=== PATIENT | female | born 1945 | race Caucasian/White ===

== ENCOUNTER 2025-03-19 06:29 | Emergency (ER) | payer MEDICARE, BC ==
[2025-03-19 06:49] VITALS: TEMP 101.3
--- NOTE | 2025-03-19 07:28 | ERPHSYRPT ---
- History of Present Illness Time Seen by Provider: 03/19/25 07:15 Source: patient Exam Limitations: no limitations Patient Subjective Stated Complaint: pt reports approx 0130 she woke up and was short of breath, pt reports fever and chills with last dose of tylenol at 0330. pt reports sharp pain in her right breast that has lessened some this morning, pt reports a mostly dry cough that is more than her baseline. Triage Nursing Assessment: pt is aox3, pt is febrile, pt is short of breath, expiratory wheezes auscultated to the right posterior lung bright, pt lung sounds are diminished throughout, cap refill < 3 seconds, radial pulses strong, irregular, pt skin hot to touch, dry, intact. Physician History: This is a morbidly obese 80-year-old white female patient who arrives to the emergency department by private vehicle with a complaint of shortness of breath that was relatively sudden in onset waking her up at approximately 130 this morning. She has associated fever and back pain. Her heart rate is in the 120 to 130 bpm range. She has pain in the right chest/breast. She has a mild, nonproductive cough. Timing/Duration: today Severity of Dyspnea-Max: mild Severity of Dyspnea-Current: mild Possible Cause: occasional episodes Modifying Factors: Improves With: coughing Associated Symptoms: cough, fever Allergies/Adverse Reactions: amoxicillin Allergy (Verified 03/19/25 06:51) celecoxib [From Celebrex] Allergy (Verified 03/19/25 06:51) sulfamethoxazole [From Bactrim] Allergy (Verified 03/19/25 06:51) trimethoprim [From Bactrim] Allergy (Verified 03/19/25 06:51) Home Medications: ALPRAZolam 0.25 MG [xanAX 0.25 MG] 0.5 mg PO TIDPRN PRN 03/19/25 [History] Allopurinol 300 mg [Zyloprim 300 mg] 300 mg PO DAILY 03/19/25 [History] Amlodipine Besylate 5 mg PO DAILY 03/19/25 [History] Atorvastatin Calcium 20 mg PO DAILY 03/19/25 [History] Fluticasone Propionate [Flonase NASAL] 16 gm NS DAILY 03/19/25 [History] Fluticasone/Vilanterol [Breo Ellipta 100-25 Mcg Inhalr] 1 puff IH DAILY 03/19/25 [History] Furosemide 20 mg [Lasix 20 mg] 20 mg PO DAILY 03/19/25 [History] Lisinopril/Hydrochlorothiazide [Lisinopril-Hctz 20-12.5 mg Tab] 1 each PO DAILY 03/19/25 [History] Montelukast Sodium 10 mg [Singulair 10 MG] 10 mg PO DAILY 03/19/25 [History] Potassium Chloride Tab* [Klor Con] 20 meq PO BID 03/19/25 [History] Hx Tetanus, Diphtheria Vaccination/Date Given: Yes Hx Influenza Vaccination/Date Given: Yes Hx Pneumococcal Vaccination/Date Given: Yes Immunizations Up to Date: Yes Travel Risk - International Travel Have you traveled outside of the country in past 3 weeks: No - Emerging Infectious Disease Are you exhibiting symptoms associated with any current EIDs: No Symptoms: Cough: New Onset, Fever - Review of Systems Constitutional: Fever Eyes: No Symptoms Ears, Nose, & Throat: No Symptoms Respiratory: Cough, Dyspnea Cardiac: No Symptoms Abdominal/Gastrointestinal: No Symptoms Genitourinary Symptoms: No Symptoms Musculoskeletal: No Symptoms Skin: No Symptoms Neurological: No Symptoms Psychological: No Symptoms Endocrine: No Symptoms Hematologic/Lymphatic: No Symptoms Immunological/Allergic: No Symptoms All Other Systems: Reviewed and Negative - Past Medical History Neurological History: No Pertinent History Cardiac History: Hypertension Respiratory History: Asthma, COPD Musculoskeletal History: Osteoarthritis Other Medical History: PMH: GOUT, L FOOT FRACTURE (5TH METATARSAL), SHINGLES. PSH: BACK SX 02' DISECTOMY X 2, BLADDER PROLAPSE, COMPLETE HYSTERECTOMY, GALL BLADDER, ,TUBAL LIGATION, - Past Surgical History Past Surgical History: Yes Gastrointestinal: Cholecystectomy Musculoskeletal: Orthopedic Surgery Female Surgical History: Hysterectomy, Tubal Ligation, Other Other Surgical History: bladder surgery - Social History Smoking Status: Former smoker Exposure to second hand smoke: No Drug Use: none - Social Determinants of Health Will the patient participate in the screening: Yes Do you worry about a steady place to live?: No Do you have any problems with any of the following?: No known problems In the past 12 months,have you had to go without utilities?: No Transportation Issues: No Has anyone in your support network made you feel unsafe?: No Have you or anyone in your house had to go w/o enough food: No - Nursing Vital Signs Nursing Vital Signs: Initial Vital Signs Pulse Rate 116 H 03/19/25 06:31 Respiratory Rate 20 03/19/25 06:31 Blood Pressure 163/93 03/19/25 06:31 O2 Sat by Pulse Oximetry 96 03/19/25 06:31 Pain Scale Pain Intensity 7 - Physical Exam General Appearance: mild distress, alert, anxiety, obese Eye Exam: PERRL/EOMI, eyes nml inspection Ears, Nose, Throat Exam: hearing grossly normal, normal ENT inspection, normal pharynx Neck Exam: normal inspection, non-tender, supple, full range of motion Respiratory Exam: normal breath sounds, lungs clear, airway intact, No chest tenderness, No respiratory distress Cardiovascular/Chest Exam: tachycardia Abdominal/Gastrointestinal Exam: soft, normal bowel sounds, No tenderness Rectal Exam: not done Extremity Exam: non-tender, normal range of motion, normal inspection Neurologic Exam: alert, oriented x 3, cooperative, machine setter sheet metal II-XII nml as tested, sensation nml Skin Exam: normal color, warm, dry Lymphatic Exam: No adenopathy SpO2 Interpretation: normal SpO2: 95 O2 Delivery: Room Air - Course Nursing assessment & vital signs reviewed: Yes EKG Interpreted by Me: RATE (114), A-fib, NORMAL AXIS, NORMAL INTERVALS, Right Bundle Branch Block, Other (QTc is 440. No acute ischemic changes on today's twelve-lead EKG.) Ordered Tests: Active Orders 24 hr Category Date Time Status EKG-ER Only STAT Care 03/19/25 07:28 Active EKG-ER Only STAT Care 03/19/25 12:45 Active IV Insertion STAT Care 03/19/25 07:28 Active Pulse Oximetry (ED) STAT Care 03/19/25 07:28 Active ABDOMEN AND PELVIS W/0 CONTRAS [CT] Stat Exams 03/19/25 08:59 Completed CHEST WITHOUT CONTRAST [CT] Stat Exams 03/19/25 08:59 Completed BLOOD CULTURE Stat Lab 03/19/25 07:45 Received CBC W DIFF Stat Lab 03/19/25 08:02 Completed CMP Stat Lab 03/19/25 08:02 Completed CULTURE,URINE Stat Lab 03/19/25 11:22 Received D-DIMER QUANTITATIVE Stat Lab 03/19/25 08:02 Completed Lactic Acid Stat Lab 03/19/25 07:43 Completed Lactic Acid Stat Lab 03/19/25 09:47 Completed MAGNESIUM Stat Lab 03/19/25 08:02 Completed MONO SCREEN Stat Lab 03/19/25 08:02 Completed PROCALCITONIN Stat Lab 03/19/25 08:02 Completed TROPONIN Q4H Lab 03/19/25 08:02 Completed TROPONIN Q4H Lab 03/19/25 11:58 Completed TROPONIN Q4H Lab 03/19/25 15:30 Ordered UA W/RFX UR CULTURE Stat Lab 03/19/25 11:22 Completed Medication Summary Generic Name Dose Route Start Last Admin Trade Name Freq PRN Reason Stop Dose Admin Sodium Chloride 1,000 mls @ 100 mls/hr 03/19/25 07:30 03/19/25 12:18 Sodium Chloride 0.9% 1000 Ml IV 04/18/25 07:29 Infused .Q10H KRUPA Infusion Sodium Chloride 1,000 mls @ 125 mls/hr 03/19/25 10:45 03/19/25 11:26 Sodium Chloride 0.9% 1000 Ml IV 04/18/25 10:44 125 mls/hr .Q8H KRUPA Administration Discontinued Medications Generic Name Dose Route Start Last Admin Trade Name Freq PRN Reason Stop Dose Admin Enoxaparin Sodium 110 mg 03/19/25 08:58 03/19/25 09:59 Enoxaparin Sodium 120 Mg/0.8 Ml Syringe SQ 03/19/25 08:59 110 mg STAT STA Administration Hydromorphone HCl 0.5 mg 03/19/25 07:30 03/19/25 07:38 Hydromorphone 1 Mg/1ml Inj IV 03/19/25 07:31 0.5 mg STAT ONE Administration Levofloxacin/Dextrose 500 mg in 100 mls @ 100 mls/hr 03/19/25 10:40 03/19/25 12:24 Levofloxacin 500mg/100ml D5w IV 03/19/25 11:39 Infused STAT STA Infusion Levofloxacin/Dextrose Confirm 03/19/25 11:09 Levofloxacin 500mg/100ml D5w Administered 03/19/25 11:10 Dose 500 mg in 100 mls @ ud IV .STK-MED ONE Magnesium Sulfate/Dextrose 100 mls @ 200 mls/hr 03/19/25 12:11 03/19/25 12:52 Magnesium 1 Gm / 100 Ml D5w IV 03/19/25 12:40 Infused STAT ONE Infusion Magnesium Sulfate/Dextrose Confirm 03/19/25 12:19 Magnesium 1 Gm / 100 Ml D5w Administered 03/19/25 12:20 Dose 100 mls @ ud IV .STK-MED ONE Ondansetron HCl 4 mg 03/19/25 07:28 03/19/25 07:34 Ondansetron Hcl 4 Mg/2 Ml Vial IV 03/19/25 07:29 4 mg STAT STA Administration Lab/Rad Data: Laboratory Result Diagrams 03/19/25 08:02 03/19/25 08:02 Laboratory Results 03/19/25 03/19/25 03/19/25 Range/Units 11:58 11:22 09:47 WBC (3.98-10.04) x10^3/uL RBC (3.93-5.22) x10^6/uL Hgb (11.2-15.7) g/dL Hct (34.1-44.9) % MCV (79.4-94.8) fL MCH (25.6-32.2) pg MCHC (32.2-35.5) g/dL RDW (11.7-14.4) % Plt Count (182-369) x10^3/uL MPV (9.4-12.3) fL Gran % (34.0-71.1) % Immature Gran % (Auto) (0.001-0.429) % Nucleat RBC Rel Count (0.00-0.2) % Eos # (Auto) (0.04-0.36) x10^3/uL Immature Gran # (Auto) (0.001-0.031) x10^3u/L Absolute Lymphs (auto) (1.18-3.74) x10^3/uL Absolute Monos (auto) (0.24-0.86) x10^3/uL Absolute Nucleated RBC (0.00-0.012) x10^3u/L Lymphocytes % (19.3-51.7) % Monocytes % (4.7-12.5) % Eosinophils % (0.7-5.8) % Basophils % (0.1-1.2) % Absolute Granulocytes (1.56-6.13) x10^3/uL Basophils # (0.01-0.08) x10^3/uL D-Dimer (0.0-0.50) mg/L Sodium (135-145) mmol/L Potassium (3.5-5.1) mmol/L Chloride (98-107) mmol/L Carbon Dioxide (22-30) mmol/L Anion Gap (5-15) MEQ/L BUN (7-17) mg/dL Creatinine (0.52-1.04) mg/dL Estimated GFR ML/MIN Glucose (74-106) mg/dL Lactic Acid 2.9 H (0.4-2.0) Calcium (8.4-10.2) mg/dL Magnesium (1.6-2.3) mg/dL Total Bilirubin (0.2-1.3) mg/dL AST (14-36) U/L ALT (0-35) U/L Alkaline Phosphatase (38-126) U/L Troponin I 0.049 H* (0.000-0.033) ng/mL Serum Total Protein (6.3-8.2) g/dL Albumin (3.5-5.0) g/dL Procalcitonin (0.030-0.080) ng/mL Urine Color Yellow (Yellow) Urine Appearance Cloudy A (Clear) Urine pH 5.0 (4.6-8.0) Ur Specific [place] 1.020 (1.005-1.030) Urine Protein Trace A (Negative) Urine Glucose (UA) Negative (Negative) mg/dL Urine Ketones Trace A (Negative) Urine Blood Negative (Negative) Urine Nitrite Positive A (Negative) Urine Bilirubin Negative (Negative) Urine Urobilinogen 1.0 A (0.2) mg/dL Ur Leukocyte Esterase Moderate A (Negative) U Hyaline Cast (Auto) 0-2 (0-2) /LPF Urine Microscopic RBC NONE SEEN (0-5) /HPF Urine Microscopic WBC 21-50 A (0-5) /HPF Ur Epithelial Cells Moderate A (None Seen) /HPF Urine Bacteria Many A (None Seen) /HPF Urine Culture Reflexed YES (NO) Monoscreen (NEGATIVE) Influenza Type A Ag (NEGATIVE) Influenza Type B Ag (NEGATIVE) RSV (PCR) (NEGATIVE) SARS-CoV-2 (PCR) (NEGATIVE) Group A Strep Antibody (NEGATIVE) 03/19/25 03/19/25 03/19/25 Range/Units 08:11 08:02 08:02 WBC (3.98-10.04) x10^3/uL RBC (3.93-5.22) x10^6/uL Hgb (11.2-15.7) g/dL Hct (34.1-44.9) % MCV (79.4-94.8) fL MCH (25.6-32.2) pg MCHC (32.2-35.5) g/dL RDW (11.7-14.4) % Plt Count (182-369) x10^3/uL MPV (9.4-12.3) fL Gran % (34.0-71.1) % Immature Gran % (Auto) (0.001-0.429) % Nucleat RBC Rel Count (0.00-0.2) % Eos # (Auto) (0.04-0.36) x10^3/uL Immature Gran # (Auto) (0.001-0.031) x10^3u/L Absolute Lymphs (auto) (1.18-3.74) x10^3/uL Absolute Monos (auto) (0.24-0.86) x10^3/uL Absolute Nucleated RBC (0.00-0.012) x10^3u/L Lymphocytes % (19.3-51.7) % Monocytes % (4.7-12.5) % Eosinophils % (0.7-5.8) % Basophils % (0.1-1.2) % Absolute Granulocytes (1.56-6.13) x10^3/uL Basophils # (0.01-0.08) x10^3/uL D-Dimer (0.0-0.50) mg/L Sodium (135-145) mmol/L Potassium (3.5-5.1) mmol/L Chloride (98-107) mmol/L Carbon Dioxide (22-30) mmol/L Anion Gap (5-15) MEQ/L BUN (7-17) mg/dL Creatinine (0.52-1.04) mg/dL Estimated GFR ML/MIN Glucose (74-106) mg/dL Lactic Acid (0.4-2.0) Calcium (8.4-10.2) mg/dL Magnesium (1.6-2.3) mg/dL Total Bilirubin (0.2-1.3) mg/dL AST (14-36) U/L ALT (0-35) U/L Alkaline Phosphatase (38-126) U/L Troponin I 0.018 (0.000-0.033) ng/mL Serum Total Protein (6.3-8.2) g/dL Albumin (3.5-5.0) g/dL Procalcitonin (0.030-0.080) ng/mL Urine Color (Yellow) Urine Appearance (Clear) Urine pH (4.6-8.0) Ur Specific [place] (1.005-1.030) Urine Protein (Negative) Urine Glucose (UA) (Negative) mg/dL Urine Ketones (Negative) Urine Blood (Negative) Urine Nitrite (Negative) Urine Bilirubin (Negative) Urine Urobilinogen (0.2) mg/dL Ur Leukocyte Esterase (Negative) U Hyaline Cast (Auto) (0-2) /LPF Urine Microscopic RBC (0-5) /HPF Urine Microscopic WBC (0-5) /HPF Ur Epithelial Cells (None Seen) /HPF Urine Bacteria (None Seen) /HPF Urine Culture Reflexed (NO) Monoscreen NEGATIVE (NEGATIVE) Influenza Type A Ag NEGATIVE (NEGATIVE) Influenza Type B Ag NEGATIVE (NEGATIVE) RSV (PCR) NEGATIVE (NEGATIVE) SARS-CoV-2 (PCR) NEGATIVE (NEGATIVE) Group A Strep Antibody (NEGATIVE) 03/19/25 03/19/25 03/19/25 Range/Units 08:02 08:02 08:02 WBC (3.98-10.04) x10^3/uL RBC (3.93-5.22) x10^6/uL Hgb (11.2-15.7) g/dL Hct (34.1-44.9) % MCV (79.4-94.8) fL MCH (25.6-32.2) pg MCHC (32.2-35.5) g/dL RDW (11.7-14.4) % Plt Count (182-369) x10^3/uL MPV (9.4-12.3) fL Gran % (34.0-71.1) % Immature Gran % (Auto) (0.001-0.429) % Nucleat RBC Rel Count (0.00-0.2) % Eos # (Auto) (0.04-0.36) x10^3/uL Immature Gran # (Auto) (0.001-0.031) x10^3u/L Absolute Lymphs (auto) (1.18-3.74) x10^3/uL Absolute Monos (auto) (0.24-0.86) x10^3/uL Absolute Nucleated RBC (0.00-0.012) x10^3u/L Lymphocytes % (19.3-51.7) % Monocytes % (4.7-12.5) % Eosinophils % (0.7-5.8) % Basophils % (0.1-1.2) % Absolute Granulocytes (1.56-6.13) x10^3/uL Basophils # (0.01-0.08) x10^3/uL D-Dimer 1.67 H* (0.0-0.50) mg/L Sodium 140 (135-145) mmol/L Potassium 4.1 (3.5-5.1) mmol/L Chloride 105 (98-107) mmol/L Carbon Dioxide 21 L (22-30) mmol/L Anion Gap 18.4 H (5-15) MEQ/L BUN 26 H (7-17) mg/dL Creatinine 1.71 H (0.52-1.04) mg/dL Estimated GFR 29.7 ML/MIN Glucose 97 (74-106) mg/dL Lactic Acid (0.4-2.0) Calcium 9.7 (8.4-10.2) mg/dL Magnesium 1.1 L (1.6-2.3) mg/dL Total Bilirubin 1.30 (0.2-1.3) mg/dL AST 25 (14-36) U/L ALT 17 (0-35) U/L Alkaline Phosphatase 120 (38-126) U/L Troponin I (0.000-0.033) ng/mL Serum Total Protein 6.6 (6.3-8.2) g/dL Albumin 4.1 (3.5-5.0) g/dL Procalcitonin 2.020 H* (0.030-0.080) ng/mL Urine Color (Yellow) Urine Appearance (Clear) Urine pH (4.6-8.0) Ur Specific [place] (1.005-1.030) Urine Protein (Negative) Urine Glucose (UA) (Negative) mg/dL Urine Ketones (Negative) Urine Blood (Negative) Urine Nitrite (Negative) Urine Bilirubin (Negative) Urine Urobilinogen (0.2) mg/dL Ur Leukocyte Esterase (Negative) U Hyaline Cast (Auto) (0-2) /LPF Urine Microscopic RBC (0-5) /HPF Urine Microscopic WBC (0-5) /HPF Ur Epithelial Cells (None Seen) /HPF Urine Bacteria (None Seen) /HPF Urine Culture Reflexed (NO) Monoscreen (NEGATIVE) Influenza Type A Ag (NEGATIVE) Influenza Type B Ag (NEGATIVE) RSV (PCR) (NEGATIVE) SARS-CoV-2 (PCR) (NEGATIVE) Group A Strep Antibody NOT DETECTED (NEGATIVE) 03/19/25 03/19/25 Range/Units 08:02 07:43 WBC 7.1 (3.98-10.04) x10^3/uL RBC 4.26 (3.93-5.22) x10^6/uL Hgb 13.0 (11.2-15.7) g/dL Hct 39.9 (34.1-44.9) % MCV 93.7 (79.4-94.8) fL MCH 30.5 (25.6-32.2) pg MCHC 32.6 (32.2-35.5) g/dL RDW 14.7 H (11.7-14.4) % Plt Count 173 L (182-369) x10^3/uL MPV 11.2 (9.4-12.3) fL Gran % 84.3 H (34.0-71.1) % Immature Gran % (Auto) 0.3 (0.001-0.429) % Nucleat RBC Rel Count 0.6 H (0.00-0.2) % Eos # (Auto) 0.01 L (0.04-0.36) x10^3/uL Immature Gran # (Auto) 0.02 (0.001-0.031) x10^3u/L Absolute Lymphs (auto) 0.85 L (1.18-3.74) x10^3/uL Absolute Monos (auto) 0.22 L (0.24-0.86) x10^3/uL Absolute Nucleated RBC 0.04 H (0.00-0.012) x10^3u/L Lymphocytes % 11.9 L (19.3-51.7) % Monocytes % 3.1 L (4.7-12.5) % Eosinophils % 0.1 L (0.7-5.8) % Basophils % 0.3 (0.1-1.2) % Absolute Granulocytes 6.00 (1.56-6.13) x10^3/uL Basophils # 0.02 (0.01-0.08) x10^3/uL D-Dimer (0.0-0.50) mg/L Sodium (135-145) mmol/L Potassium (3.5-5.1) mmol/L Chloride (98-107) mmol/L Carbon Dioxide (22-30) mmol/L Anion Gap (5-15) MEQ/L BUN (7-17) mg/dL Creatinine (0.52-1.04) mg/dL Estimated GFR ML/MIN Glucose (74-106) mg/dL Lactic Acid 2.7 H (0.4-2.0) Calcium (8.4-10.2) mg/dL Magnesium (1.6-2.3) mg/dL Total Bilirubin (0.2-1.3) mg/dL AST (14-36) U/L ALT (0-35) U/L Alkaline Phosphatase (38-126) U/L Troponin I (0.000-0.033) ng/mL Serum Total Protein (6.3-8.2) g/dL Albumin (3.5-5.0) g/dL Procalcitonin (0.030-0.080) ng/mL Urine Color (Yellow) Urine Appearance (Clear) Urine pH (4.6-8.0) Ur Specific [place] (1.005-1.030) Urine Protein (Negative) Urine Glucose (UA) (Negative) mg/dL Urine Ketones (Negative) Urine Blood (Negative) Urine Nitrite (Negative) Urine Bilirubin (Negative) Urine Urobilinogen (0.2) mg/dL Ur Leukocyte Esterase (Negative) U Hyaline Cast (Auto) (0-2) /LPF Urine Microscopic RBC (0-5) /HPF Urine Microscopic WBC (0-5) /HPF Ur Epithelial Cells (None Seen) /HPF Urine Bacteria (None Seen) /HPF Urine Culture Reflexed (NO) Monoscreen (NEGATIVE) Influenza Type A Ag (NEGATIVE) Influenza Type B Ag (NEGATIVE) RSV (PCR) (NEGATIVE) SARS-CoV-2 (PCR) (NEGATIVE) Group A Strep Antibody (NEGATIVE) - Progress Air Movement: good Progress Note: 03/19/25 07:32 My medical decision making and the assignment of moderate to high complexity of this patient's medical issue today is based on review of the patient's past medical history, review of patient's medication list, reviewed patient drug allergy list, history present illness and physical findings on examination. The workup in this patient includes placement of intravenous line, infusion of crystalloid solution, blood cultures, lactic acid level, procalcitonin level, CBC, CMP, magnesium level, troponin level, D-dimer level, amylase and lipase level, CT scan of the abdomen pelvis and CT scan of the chest. Depending on the D-dimer level, we may need to perform a CT scan of the chest with contrast. Differential diagnosis includes but is not limited to sepsis, pneumonia, urinary tract infection, pancreatitis, myocardial infarction, electrolyte abnormalities, arrhythmia 03/19/25 10:13 I have interpreted the laboratory data results. Based on the laboratory data results, the patient has an elevated D-dimer but also has chronic renal failure with a low GFR. We will place this patient in observation and obtain a VQ scan tomorrow, 03/20/2025. In addition, the patient has an elevated procalcitonin which is consistent with an infectious process. We will place this patient on Lovenox subcutaneously. The CT scan of the chest without contrast was performed and interpreted by the radiologist. The radiologist impression states large area of consolidation with air bronchograms right upper lobe and smaller area of consolidation medial segment of right middle lobe and posterior basal segment left lower lobe. Findings are likely infectious. 03/19/25 10:[address] scan of the abdomen pelvis without contrast was interpreted by the radiologist. The radiologist impression states uncomplicated sigmoid diverticulosis. No free air or free fluid. No evidence of bowel obstruction or wall thickening. No acute intra-abdominal/intrapelvic pathology 03/19/25 13:03 The urinalysis results returned and I interpreted the results. Patient has a significant urinary tract infection. The patient's repeat troponin came back elevated. It increased from 0.018 to 0.04. The patient is septic and has a rising troponin level. The patient be best served by transferring this patient to a facility where there is infectious disease, clinical care manager, inpatient hospitalist/monitored bed care and tobacco shaker available. The patient and spouse agree. They prefer to use [facility]. I interpreted the repeat twelve-lead EKG performed on 03/19/2025 at 1257 and compared this to the prior twelve-lead EKG performed at 634. The patient has converted to normal sinus rhythm and the heart rate is 96. There is borderline right axis deviation. The QTc is 472. There is no evidence of any acute ischemia. 03/19/25 13:[address] Severo Daniels the emergency room physician at [facility]. I reviewed the patient history, presenting complaint, history present illness and physical findings on examination. I also reviewed the results of our workup. This included sig elevated d-dimer level. I told him my original plan was to admiti here for V/Q scan tomorrow but the troponin sig increased. He accepts the patient for transport to their facility 03/19/25 13:17 Blood Culture(s) Obtained: Yes Antibiotics given: Yes Counseled pt/family regarding: lab results, diagnosis, rad results Medical Desision Making - Independent Historian Additional History obtained from: Spouse - Diagnostic Testing Diagnostic test were ordered, analyzed, and reviewed by me: Yes Radiological Interpretation: Reviewed by me, Teleradiologist Report - Risk of complications The pt has a high risk of morbidity or mortality based on: Decision regarding hospitilization or escalation of hosp level of care - Departure Departure Disposition: Transfer Clinical Impression: Sepsis, Pneumonia, Urinary tract infection, Elevated d-dimer, Elevated troponin Condition: Fair Critical Care Time: Yes Critical Care Time(excluding separately billable procedures): Critical 30-74 mins (45) Referrals: HARJIT GONSALEZ MD [Primary Care Provider, [facility]] - Follow up/PCP as directed
[2025-03-19] MEDS: Sodium Chloride 0.9% 1000 ML 1,000 ML IV SCH ×3 (07:33→14:00)
[2025-03-19] MEDS: Zofran 4 MG/2 ML VIAL IV STA (07:34)
[2025-03-19] MEDS: Hydromorphone 1 mg/ml Injection IV ONE (07:38)
[2025-03-19 08:08] LABS: BASOPHIL % 0.3 % (0.1-1.2); Basophil (Absolute #) 0.02 x10^3/uL (0.01-0.08); Eosinophil % 0.1 % (0.7-5.8); Eosinophil (Absolute #) 0.01 x10^3/uL (0.04-0.36); Hematocrit 39.9 % (34.1-44.9); IMMATURE GRAN # 0.02 x10^3u/L (0.001-0.031); IMMATURE GRAN % 0.3 % (0.001-0.429); Lymphocyte (Absolute #) 0.85 x10^3/uL (1.18-3.74); Lymphocytes % 11.9 % (19.3-51.7); Mean Cell Volume 93.7 fL (79.4-94.8); Mean Corpuscular Hemoglobin 30.5 pg (25.6-32.2); Mean Corpuscular Hgb Concent. 32.6 g/dL (32.2-35.5); Mean Platelet Volume 11.2 fL (9.4-12.3); Monocyte (Absolute #) 0.22 x10^3/uL (0.24-0.86); Monocytes % 3.1 % (4.7-12.5); NUCLEATED RBC # 0.04 x10^3u/L (0.00-0.012); NUCLEATED RBC % 0.6 % (0.00-0.2); Neutrophil % 84.3 % (34.0-71.1); Platelet Count 173 x10^3/uL (182-369); Red Blood Count 4.26 x10^6/uL (3.93-5.22); Red Cell Distribution Width 14.7 % (11.7-14.4); White Blood Count 7.1 x10^3/uL (3.98-10.04)
[2025-03-19 08:40] LABS: ALBUMIN 4.1 g/dL (3.5-5.0); ANION GAP 18.4 MEQ/L (5-15); BILIRUBIN,TOTAL 1.3 mg/dL (0.2-1.3); Calcium 9.7 mg/dL (8.4-10.2); Creatinine 1 1.71 mg/dL (0.52-1.04); EST GLOMERULAR FILTRATION RATE 29.7 ML/MIN; Potassium 4.1 mmol/L (3.5-5.1); Total Protein 6.6 g/dL (6.3-8.2)
[2025-03-19 08:45] LABS: MAGNESIUM 1.1 mg/dL (1.6-2.3); PROCALCITONIN 2.02 ng/mL (0.030-0.080)
[2025-03-19 09:05] LABS: INFLUENZA A NEGATIVE (NEGATIVE); INFLUENZA B NEGATIVE (NEGATIVE); RESPIRATORY SYNCTIAL VIRUS NEGATIVE (NEGATIVE); SARS-CoV-2 Xpert Express NEGATIVE (NEGATIVE)
[2025-03-19] MEDS: ENOXAPARIN SODIUM SQ STA (09:59)
--- NOTE | 2025-03-19 10:03 | XRAY ---
CLINICAL HISTORY: D-dimer up; flank pain; cough/fever COMPARISON: None. TECHNIQUE: Contiguous axial CT images of the chest were acquired without administration of intravenous contrast. Coronal and sagittal reconstructions were obtained. One of the following dose reduction techniques were utilized for this exam: Automated exposure control, adjustment of the mA and/or kV according to patient size, use of iterative reconstruction. CTDL: 15.75 mGy DLP : 1096.43 mGY.cm. FINDINGS: Lungs: Large area of consolidation with air bronchograms in right upper lobe. Small areas of consolidation in medial segment of right middle lobe and posterior basal segment of left lower lobe. Nodular calcified opacity of 2-3 mm in lateral basal segment of right lower lobe. No pleural effusion or pleural thickening. Mediastinum: The mediastinum is normal in size and contour. No mediastinal mass or abnormal lymphadenopathy. Cardiomegaly. Mild atherosclerotic wall calcifications in aorta. Coronary artery disease. Hilar Structures: The hilar structures appear normal without enlargement or abnormality. Trachea and Main Bronchi: The trachea and main bronchi are patent without evidence of obstruction or abnormality. Chest Wall: The chest wall is unremarkable with no evidence of soft tissue or bony abnormalities. Upper Abdomen: Multiple small calcified granulomas in liver and spleen. Visualized portions of the liver, spleen, adrenal glands, and kidneys are unremarkable. Bones: Spondylotic changes in thoracic spine. Visualized osseous structures are normal, no evidence of fracture or lytic/sclerotic lesions. IMPRESSION: 1. Large area of consolidation with air bronchograms in right upper lobe. 2. Small areas of consolidation in medial segment of right middle lobe and posterior basal segment of left lower lobe. 3. Findings likely pneumonia/infective etiology. Electronically Signed by: Lorenzo Jiménez MD. (03/19/2025 09:59:25 EDT)
--- NOTE | 2025-03-19 10:21 | XRAY ---
CLINICAL HISTORY: D-dimer up; flank pain; cough/fever COMPARISON: None. TECHNIQUE: Non-contrast CT of the abdomen and pelvis was performed, with the following protocol: axial images, and reconstructed coronal and sagittal images. No intravenous contrast was administered. One of the following dose reduction techniques was utilized for this exam: Automated exposure control, adjustment of the mA and/or kV according to patient size, and use of iterative reconstruction. FINDINGS: Abdomen: Liver: Normal in size, shape, and density. Multiple small calcified granulomas in the parenchyma. Gallbladder and Biliary System: Status post cholecystectomy with surgical clips. Pancreas: Pancreatic head, body, and tail are visualized and appear normal in size and density. No pancreatic masses or calcifications were noted. Spleen: Normal in size, shape, and density. Multiple small calcified granulomas in the parenchyma. Kidneys and Adrenal Glands: Both kidneys are normal in size, shape, and position. Cortical thickness is within normal limits. No renal calculi or hydronephrosis. Adrenal glands are unremarkable. Appendix: The appendix is normal in size without fermín appendiceal fat stranding, and without an appendicolith. No evidence of appendiceal abscess or perforation. Pelvis: Urinary Bladder: Partially distended. No intraluminal lesions. Uterus: Post operative status. Ovaries: Not well visualized but no gross abnormalities noted. Vagina: Normal in contour and wall thickness. Cervix: No evidence of mass or abnormal thickening. Peritoneal and Retroperitoneal Structures: No free fluid or abnormal fluid collections were identified within the abdomen or pelvis. No lymphadenopathy was noted. Moderate atherosclerotic wall calcifications in abdominal aorta and its branches. Bowel: Uncomplicated sigmoid colon diverticulosis. The visualized bowel loops are normal in caliber and appearance. No evidence of bowel obstruction or wall thickening. Bones and Soft Tissues: Moderate spondylotic changes in thoracolumbar spine. Pelvic bones and soft tissues are unremarkable. No fractures or abnormal masses were identified. IMPRESSION: 1. No evidence of acute intra-abdominal pathology. 2. Multiple small calcified granulomas in liver and spleen. 3. Uncomplicated sigmoid colon diverticulosis. 4. Clinical correlation is recommended. Electronically Signed by: Lorenzo Jiménez MD. (03/19/2025 10:18:52 EDT)
[2025-03-19] MEDS ORDERED: Sodium Chloride 0.9% 1000 ML 1,000 ML ONE ×2 (11:09→13:53)
[2025-03-19] MEDS ORDERED: Levofloxacin 500MG/100ML D5W 500 MG/100 ML BAG IV ONE (11:09)
[2025-03-19] MEDS: Levofloxacin 500MG/100ML D5W 500 MG/100 ML BAG IV STA (11:25)
[2025-03-19] MEDS ORDERED: Magnesium 1 Gm / 100 Ml D5W*** 100 ML IV ONE (12:19)
[2025-03-19] MEDS: Magnesium 1 Gm / 100 Ml D5W*** 100 ML IV ONE (12:20)
[2025-03-19 12:43] LABS: Appearance Cloudy (Clear); Bilirubin Negative (Negative); Blood Negative (Negative); Epithelial Cells Moderate /HPF (None Seen); Glucose, Urine Negative (Negative); Ketones Trace (Negative); Leukocyte Esterase Moderate (Negative); Nitrite Positive (Negative); Protein,Urine Dip Trace (Negative)
[2025-03-19 12:45] LABS: Hyaline Casts 0-2 /LPF (0-2); RBC NONE SEEN /HPF (0-5); WBC 21-50 /HPF (0-5)
[2025-03-19 12:46] LABS: Bacteria Many /HPF (None Seen)
[2025-03-19 13:01] VITALS: PULSE 102
[2025-03-19] MEDS ORDERED: TYLENOL 325 MG ONE (13:53)
[2025-03-19] MEDS: TYLENOL 325 MG PO STA (13:59)
[2025-03-19 14:45] VITALS: BP 96/67; RESP 15; O2SAT 74
== END 2025-03-19 14:45 | disposition short-term general hospital (02) ==
LOC: ED 06:29
DX: A41.9 Sepsis, unspecified organism (principal); J18.9 Pneumonia, unspecified organism; N39.0 Urinary tract infection, site not specified; R77.8 Other specified abnormalities of plasma proteins; R79.1 Abnormal coagulation profile; R06.02 Shortness of breath; R50.9 Fever, unspecified; R07.9 Chest pain, unspecified; R05.1 Acute cough; I10 Essential (primary) hypertension; Z79.899 Other long term (current) drug therapy
CPT/HCPCS: 0241U; 36415; 71250; 74176; 80053; 81001; 83605; 83735; 84145; 84484; 85025; 85379; 86308; 87040; 87077; 87086; 87186; 87651; 93005; 94760; 96361; 96365; 96366; 96368; 96375; 99291; 96374; 99285; J1171; J1650; J1956; J2405; J3475; A9270-GY